=== PATIENT | male | born 1945 | race Caucasian/White ===

== ENCOUNTER 2023-06-30 18:25 | Emergency (ER) | payer OTHER ==
[~2023-06-30] VITALS: Ht 177.8 cm; Wt 77.1 kg
[2023-06-30 19:24] LABS: BASOPHILS ABSOLUTE AUTO 0.05 K/mm3 (0.00-0.23); BASOPHILS PERCENT AUTO 0 % (0-2); EOSINOPHILS ABSOLUTE AUTO 0.01 K/mm3 (0.00-0.68); EOSINOPHILS PERCENT AUTO 0 % (0-6); Hematocrit 31.2 % (37.0-53.0); Hemoglobin 10.3 g/dL (13.5-17.5); IMMATURE GRAN ABSOLUTE AUTO 0.06 K/mm3 (0.00-0.10); IMMATURE GRAN PERCENT AUTO 0 % (0-1); LYMPHOCYTES ABSOLUTE AUTO 0.38 K/mm3 (0.84-5.20); LYMPHOCYTES PERCENT AUTO 3 % (21-46); MONOCYTES ABSOLUTE AUTO 0.63 K/mm3 (0.16-1.47); MONOCYTES PERCENT AUTO 4 % (4-13); Mean Corpuscular HGB 30.7 pg (26.0-34.0); Mean Corpuscular Volume 93 fL (80-100); Mean Platelet Volume 8.7 fL (9.1-12.4); NEUTROPHILS ABSOLUTE AUTO 14.26 K/mm3 (1.96-9.15); NEUTROPHILS PERCENT AUTO 93 % (41-73); Platelet Count 371 K/mm3 (150-400); RDW Coefficient Variation 14.6 % (11.7-14.2); RDW Standard Deviation 50.1 fL (35.1-46.3); Red Blood Cell Count 3.36 M/mm3 (4.30-5.90); White Blood Cell Count 15.39 K/mm3 (4.00-11.30)
[2023-06-30 19:41] LABS: Albumin, Blood 2.8 g/dL (3.4-5.0); Albumin/Globulin Ratio 0.5 (0.8-1.8); Bilirubin, Total 0.3 mg/dL (0.1-1.0); Bun/Creatinine Ratio 17.5 (12.0-20.0); Calcium, Blood 8.6 mg/dL (8.5-10.1); Creatinine, Blood 1.26 mg/dL (0.60-1.20); Globulin, Blood 5.3 g/dL (2.2-4.0); Potassium, Blood 4.8 mmol/L (3.5-5.5); Total Protein, Blood 8.1 g/dL (6.4-8.2)
[2023-06-30] MEDS ORDERED: AZIT250 PO (21:04)
[2023-07-01] MEDS ORDERED: AZIT250 PO ×3 (06:59→08:32)
[2023-07-01 20:30] VITALS: BP 136/74
== END 2023-06-30 21:00 ==
LOC: ER 18:25
PROVIDERS: Emergency Medicine
DX: R56.9 Unspecified convulsions (principal); J18.9 Pneumonia, unspecified organism; J44.9 Chronic obstructive pulmonary disease, unspecified; I10 Essential (primary) hypertension
CPT/HCPCS: 70450; 71045; 80053; 85025; 93005; 93010; J1953

== ENCOUNTER 2023-12-31 06:53 | Inpatient (IN) | payer OTHER ==
[~2023-12-31] VITALS: Ht 185.4 cm; Wt 75.9 kg
[~2023-12-31 06:53] MED LIST: ALBU2.5V5; ALBU90OI INH; AMLO10 PO; AMOCLA875 PO; AZIT250 PO; CEPH500 PO; Crestor20 MG PO; DEXA1 PO; FAMO40 PO; FERSU300 PO; FLUT1DIS5 INH; Hytrin2 MG PO; IPRATROPIUM BRO15 ML; LOPE2C PO; MAGNESIUM OXID500 MG PO; METO50ER PO; OMEP20ER PO; PRED5EL MT; PROBIOTIC1 EA13 PO; Percocet 5-3251 EACH PO; Prinivil10 MG PO; TIOT18 INH
[2023-12-31] MEDS ORDERED: levETIRAcetam 1,000 MG in NS 100 ML IV ONE (07:05)
[2023-12-31] MEDS ORDERED: Albuterol 2.5 MG/3 ML VIAL INH SCH (07:10)
[2023-12-31 07:15] LABS: BASOPHILS ABSOLUTE AUTO 0.07 K/mm3 (0.00-0.23); BASOPHILS PERCENT AUTO 1 % (0-2); EOSINOPHILS ABSOLUTE AUTO 0.26 K/mm3 (0.00-0.68); EOSINOPHILS PERCENT AUTO 3 % (0-6); Hematocrit 37.9 % (37.0-53.0); Hemoglobin 11.7 g/dL (13.5-17.5); IMMATURE GRAN ABSOLUTE AUTO 0.03 K/mm3 (0.00-0.10); IMMATURE GRAN PERCENT AUTO 0 % (0-1); LYMPHOCYTES ABSOLUTE AUTO 1.72 K/mm3 (0.84-5.20); LYMPHOCYTES PERCENT AUTO 18 % (21-46); MONOCYTES PERCENT AUTO 11 % (4-13); Mean Corpuscular HGB 31.1 pg (26.0-34.0); Mean Corpuscular HGB Conc 30.9 g/dL (31.5-36.5); Mean Corpuscular Volume 101 fL (80-100); Mean Platelet Volume 9.3 fL (9.1-12.4); NEUTROPHILS ABSOLUTE AUTO 6.49 K/mm3 (1.96-9.15); NEUTROPHILS PERCENT AUTO 67 % (41-73); Platelet Count 373 K/mm3 (150-400); RDW Coefficient Variation 16.4 % (11.7-14.2); RDW Standard Deviation 61.1 fL (35.1-46.3); Red Blood Cell Count 3.76 M/mm3 (4.30-5.90); White Blood Cell Count 9.67 K/mm3 (4.00-11.30)
[2023-12-31 07:20] LABS: PCO2 Venous 57.1 mmHg (38-42)
[2023-12-31 07:21] LABS: Base Excess Venous -12.1 mmol/L; Bicarbonate Venous 14.9 mmol/L (24.0-30.0)
[2023-12-31 07:36] LABS: Alanine Aminotransfer (ALT/SGP 15 U/L (12-78); Albumin, Blood 3.1 g/dL (3.4-5.0); Albumin/Globulin Ratio 0.6 (0.8-1.8); Alk Phos 70 U/L (50-136); Anion Gap 19 mmol/L (3-11); Aspartate Aminotrans (AST/SGOT 30 U/L (12-37); Bilirubin, Total 0.3 mg/dL (0.1-1.0); Blood Urea Nitrogen 24 mg/dL (8-24); Bun/Creatinine Ratio 25.1 (12.0-20.0); CO2, Blood 18 mmol/L (21-32); Calcium, Blood 9.9 mg/dL (8.5-10.1); Chloride, Blood 107 mmol/L (98-108); Creatinine, Blood 0.96 mg/dL (0.60-1.20); Globulin, Blood 4.8 g/dL (2.2-4.0); Glomerular Filtration Rate 82 (60-); Glucose, Blood 146 mg/dL (70-99); Potassium, Blood 4.8 mmol/L (3.5-5.5); Sodium, Blood 139 mmol/L (136-145); Total Protein, Blood 7.9 g/dL (6.4-8.2)
[2023-12-31] MEDS ORDERED: Dexamethasone Sod Phos 10 MG/ML 1ML VIAL PO ONE (10:10)
[2023-12-31] MEDS ORDERED: Dexamethasone Sod Phos 10 MG/ML 1ML VIAL IV ONE (10:25)
[2023-12-31] MEDS ORDERED: HYDROcodone 10-APAP 325 TAB PO PRN (11:25)
[2023-12-31] MEDS ORDERED: Acetaminophen 325 MG TABLET PO PRN (11:25)
[2023-12-31] MEDS ORDERED: Albuterol HFA200 ACT/6.7 GM INH INH PRN (11:35)
[2023-12-31] MEDS ORDERED: Dexamethasone Sodium Phosphate 4 MG/ML 1ML Vial IV SCH (12:00)
[2023-12-31 13:52] VITALS: BP 151/87
[2023-12-31] MEDS ORDERED: AMLO5 PO (14:11)
[2023-12-31] MEDS ORDERED: Ferrous Sulfate 325 MG Tab PO SCH (17:00)
--- NOTE | 2023-12-31 17:24 | NUR ---
ADMISSION AND SHIFT SUMMARY PATIENT ADMITTED TO MEDICAL FLOOR AFTER FALLING OUT OF BED AND HAVING 2 SEIZURES BEFORE ARRIVING TO THE HOSPITAL. PATIENT HAS SKIN TEARS ON FACE AND HANDS ALONG WITH BRUISING FROM FALL. PATIENT AROUSES, ABLE TO ANSWER SIMPLE QUESTIONS. 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 PATIENT STARTED ON KEPPRA IN ED ALONG WITH STEROIDS. ARRIVED AFTER PATIENT. AGITATED AND VERBALIZING FRUSTRATION ABOUT PREVIOUS DISCHARGE. CASE MANAGEMENT NOTIFIED AND PATIENT ADVOCATE CONTACTED. PATIENT ADVOCATE MADE CONTACT WITH . NO FURTHER SEIZURE ACTIVITY WITNESSED THIS SHIFT.
[2023-12-31] MEDS ORDERED: LORazepam 2 MG/ML 1ML Injection IV PRN (17:35)
[2023-12-31 19:46] VITALS: BP 133/75
[2023-12-31] MEDS ORDERED: Doxazosin Mesylate 2 MG Tab PO SCH (21:00)
[2023-12-31] MEDS ORDERED: levETIRAcetam 1,000 MG in NS 100 ML IV SCH (21:00)
[2023-12-31] MEDS ORDERED: Famotidine 20 MG Tab PO SCH (21:00)
[2023-12-31] MEDS ORDERED: NS 250 ML IV PRN (21:15)
--- NOTE | 2024-01-01 04:59 | NUR ---
SHIFT SUMMARY 78 YR M ADMITTED ON 12/31/23. DNR. NO ACUTE CHANGES THIS SHIFT. PT HAS SLEPT OFF AND ON FOR MOST OF THIS SHIFT BUT APPEARS TO BE A&O WHEN AWAKE. HE IS ABLE TO ANSWER QUESTIONS APPROPRIATELY AND ENGAGE IN SMALL TALK. HE STATES THAT HE FEELS FINE AND IS COMFORTABLE. NO SEIZURE ACTIVITY NOTED THIS SHIFT.
[2024-01-01 05:37] VITALS: BP 123/88
[2024-01-01 05:53] LABS: BASOPHILS PERCENT AUTO 0 % (0-2); EOSINOPHILS PERCENT AUTO 0 % (0-6); Hematocrit 32.1 % (37.0-53.0); Hemoglobin 10.3 g/dL (13.5-17.5); IMMATURE GRAN ABSOLUTE AUTO 0.03 K/mm3 (0.00-0.10); IMMATURE GRAN PERCENT AUTO 1 % (0-1); LYMPHOCYTES PERCENT AUTO 6 % (21-46); MONOCYTES ABSOLUTE AUTO 0.09 K/mm3 (0.16-1.47); MONOCYTES PERCENT AUTO 1 % (4-13); Mean Corpuscular HGB 30.4 pg (26.0-34.0); Mean Corpuscular HGB Conc 32.1 g/dL (31.5-36.5); Mean Platelet Volume 9.2 fL (9.1-12.4); NEUTROPHILS ABSOLUTE AUTO 6.02 K/mm3 (1.96-9.15); NEUTROPHILS PERCENT AUTO 92 % (41-73); Platelet Count 293 K/mm3 (150-400); RDW Coefficient Variation 16.1 % (11.7-14.2); RDW Standard Deviation 56.1 fL (35.1-46.3); Red Blood Cell Count 3.39 M/mm3 (4.30-5.90); White Blood Cell Count 6.54 K/mm3 (4.00-11.30)
[2024-01-01 05:55] LABS: Mean Corpuscular Volume 95 fL (80-100)
[2024-01-01 06:20] LABS: BASOPHILS PERCENT MAN 0 % (0-2); EOSINOPHILS PERCENT MAN 0 % (0-6); LYMPHOCYTES ABSOLUTE MAN 0.26 K/mm3 (0.84-5.20); LYMPHOCYTES PERCENT MAN 4 % (21-46); MONOCYTES ABSOLUTE MAN 0.13 K/mm3 (0.16-1.47); MONOCYTES PERCENT MAN 2 % (4-13); NEUTROPHILS ABSOLUTE MAN 6.14 K/mm3 (1.96-9.15); SEG NEUTROPHILS PERCENT MAN 94 % (41-73); TOTAL CELLS COUNTED 100
[2024-01-01 06:25] LABS: Bun/Creatinine Ratio 27.9 (12.0-20.0); Calcium, Blood 9.6 mg/dL (8.5-10.1); Creatinine, Blood 0.79 mg/dL (0.60-1.20); Potassium, Blood 4.2 mmol/L (3.5-5.5)
[2024-01-01 07:17] VITALS: BP 122/84
[2024-01-01] MEDS ORDERED: Rosuvastatin Calcium 10 MG Tab PO SCH (09:00)
[2024-01-01] MEDS ORDERED: Metoprolol Succinate 50 MG TABCR PO SCH (09:00)
[2024-01-01] MEDS ORDERED: Lisinopril 10 MG Tab PO SCH (09:00)
[2024-01-01 15:42] VITALS: BP 113/74
--- NOTE | 2024-01-01 17:58 | NUR ---
SHIFT SUMMARY PATIENT ALERT AND INTERACTIVE. PATIENT UP TO CHAIR TODAY AND USING BEDSIDE COMMODE. PATIENT DENIES ANY HEADACHE. STATES THAT HE CANT REMEMBER ANYTHING FROM YESTERDAY. PATIENT DOES NOT REMEMBER FALLING BUT IS AWARE THAT HE HAD A SEIZURE. NO SEIZURE ACTIVITY WITNESSED THIS SHIFT. CONTINUE TO GIVE STEROIDS AND KEPPRA. PATIENT ABLE TO FEED SELF AND TAKE PO MEDICATIONS WITHOUT DIFFICULTY. IN TO SEE PATIENT AT END OF SHIFT. DR. LEVY SPOKE WITH AT LENGTH ABOUT PLAN. PATIENT TO BE DISCHARGED IN THE AM. PATIENT TO CONTINUE SEIZURE MEDICATIONS AND STEROIDS AN OUTPATIENT. MEDICATIONS FAXED TO [facility] PER 'S REQUEST. VERBALIZING FRUSTRATION IN THE ROOM ABOUT HAVING TO PAY FOR MEDICATIONS SINCE [facility] CLOSED.
[2024-01-01] MEDS ORDERED: dexAMETHasone 4 MG TAB PO SCH (18:00)
[2024-01-01 20:04] VITALS: BP 133/82
[2024-01-01] MEDS ORDERED: LevETIRAcetam 500 MG Tab PO SCH (21:00)
[2024-01-02 03:35] VITALS: BP 129/77
--- NOTE | 2024-01-02 04:13 | NUR ---
SHIFT SUMMARY A&Ox4. Calm and pleasant RA. Tele, denies CP/pressure. Utilizes urinal. Uninterrupted rest >[address] on L cheek d/t skin tear present from a fall resulting in this admit. Safety precautions monitored, pt call light appropriate.
[2024-01-02 07:40] VITALS: BP 147/80
[2024-01-02] MEDS ORDERED: ACET325 PO (10:37)
[2024-01-02] MEDS ORDERED: DECADRON4 M1 PT (10:39)
[2024-01-02] MEDS ORDERED: LEVE500 PO (10:41)
[2024-01-02] MEDS ORDERED: FAMO20 PO (10:41)
[2024-01-02] MEDS ORDERED: DOXA2 PO (10:41)
[2024-01-02] MEDS ORDERED: METO50ER PO (10:42)
[2024-01-02] MEDS ORDERED: Prinivil10 MG PO (10:42)
[2024-01-02] MEDS ORDERED: ROSU10TA PO (10:43)
--- NOTE | 2024-01-02 11:15 | NUR ---
pt has been discharged to home, family member here, states she needs a wheelchair, went over discharge with pt. he verbalized understanding, iv removed intact, new meds faxed to [facility], left via wheelchair with his belongings and electric cell tender in attendence.
== END 2024-01-02 11:08 | disposition home health service (06) | DRG 54 ==
LOC: ER 06:53 → MEDS 06:54
PROVIDERS: Emergency Medicine; ADMIT Internal Medicine
DX: C79.31 Secondary malignant neoplasm of brain (principal); G93.6 Cerebral edema; E87.20 Acidosis, unspecified; C34.90 Malignant neoplasm of unspecified part of unspecified bronchus or lung; I10 Essential (primary) hypertension; J44.9 Chronic obstructive pulmonary disease, unspecified; D64.9 Anemia, unspecified; S00.83XA Contusion of other part of head, initial encounter; Z66 Do not resuscitate; W06.XXXA Fall from bed, initial encounter; Z96.649 Presence of unspecified artificial hip joint; Z96.659 Presence of unspecified artificial knee joint
CPT/HCPCS: 36415; 70450; 70496; 70498; 71045; 72125; 80048; 80053; 82803; 85025; 93005; 93010; 94644; 94664; 94760; 96365-59; 96375-59; 97162; 99285-25; A9270; G0378; J1100; J1953; J7050; Q9967

== ENCOUNTER 2024-02-05 07:58 | Inpatient (IN) | payer OTHER ==
[~2024-02-05] VITALS: Ht 177.8 cm; Wt 78.6 kg
[~2024-02-05 07:58] MED LIST changes: +ACET325 PO; +AMLO5 PO; +DECADRON4 M1 PO; +DOXA2 PO; +FAMO20 PO; +LEVE500 PO; +ROSU10TA PO
[2024-02-05] MEDS ORDERED: NS 500 ML IV SCH (08:15)
[2024-02-05 08:21] LABS: Hematocrit 42.7 % (37.0-53.0); Hemoglobin 14.3 g/dL (13.5-17.5); Mean Corpuscular HGB 30.6 pg (26.0-34.0); Mean Corpuscular HGB Conc 33.5 g/dL (31.5-36.5); Mean Corpuscular Volume 91 fL (80-100); NRBC ABSOLUTE 0.02 K/mm3 (0.00-0.02); NRBC Auto 0.2 /100 WBC (0.0-0.2); Platelet Count 149 K/mm3 (150-400); RDW Coefficient Variation 17.7 % (11.7-14.2); RDW Standard Deviation 59.7 fL (35.1-46.3); Red Blood Cell Count 4.68 M/mm3 (4.30-5.90); White Blood Cell Count 11.61 K/mm3 (4.00-11.30)
[2024-02-05 08:40] LABS: Albumin, Blood 1.7 g/dL (3.4-5.0); Albumin/Globulin Ratio 0.3 (0.8-1.8); Bilirubin, Total 0.3 mg/dL (0.1-1.0); Bun/Creatinine Ratio 53.1 (12.0-20.0); Calcium, Blood 10.1 mg/dL (8.5-10.1); Creatinine, Blood 0.68 mg/dL (0.60-1.20); Globulin, Blood 5.6 g/dL (2.2-4.0); Potassium, Blood 4.7 mmol/L (3.5-5.5); Total Protein, Blood 7.3 g/dL (6.4-8.2)
[2024-02-05 08:42] LABS: BAND PERCENT MAN 10 % (0-8); BASOPHILS PERCENT MAN 0 % (0-2); EOSINOPHILS PERCENT MAN 0 % (0-6); LYMPHOCYTES ABSOLUTE MAN 0.11 K/mm3 (0.84-5.20); LYMPHOCYTES PERCENT MAN 1 % (21-46); METAMYELOCYTE ABSOLUTE MAN 0.11 K/mm3 (0.00-0.00); METAMYELOCYTE PERCENT MAN 1 % (0-0); MONOCYTES ABSOLUTE MAN 0.34 K/mm3 (0.16-1.47); MONOCYTES PERCENT MAN 3 % (4-13); NEUTROPHILS ABSOLUTE MAN 11.02 K/mm3 (1.96-9.15); SEG NEUTROPHILS PERCENT MAN 85 % (41-73); TOTAL CELLS COUNTED 100
[2024-02-05] MEDS ORDERED: CefTRIAXone Sodium 1,000 MG in NS 100 ML IV ONE (12:40)
[2024-02-05] MEDS ORDERED: Azithromycin 500 MG in NS 250 ML IV ONE (12:40)
[2024-02-05] MEDS ORDERED: NS 1,000 ML IV SCH ×2 (14:20→14:30)
[2024-02-05] MEDS ORDERED: Acetaminophen 325 MG TABLET PO PRN (14:30)
[2024-02-05] MEDS ORDERED: Metoprolol Succinate 50 MG TABCR PO SCH (15:00)
[2024-02-05] MEDS ORDERED: Cefepime HCl 2,000 MG in NS 100 ML IV SCH (16:00)
[2024-02-05 16:34] VITALS: BP 167/107
[2024-02-05 16:35] LABS: Source, Urine Clean Catch
[2024-02-05] MEDS ORDERED: Labetalol HCL 5 MG/ML 4ML Injection (Single Dose) IV PRN (16:45)
[2024-02-05] MEDS ORDERED: Albuterol 2.5 MG/3 ML VIAL INH SCH (16:50)
[2024-02-05] MEDS ORDERED: Albuterol 2.5 MG/3 ML VIAL INH PRN (16:50)
[2024-02-05 17:00] LABS: Bilirubin, Urine Neg (Neg); Blood, Urine 1+ (Neg); Color, Urine Yellow (P-Yellow); Glucose Qualitative, Urine Neg (Neg); Ketones, Urine Neg (Neg); Leukocyte Esterase, Urine Neg (Neg); Nitrite, Urine Neg (Neg); Protein, Urine 4+ (Neg); Specific Gravity, Urine 1.015 (1.003-1.022); Urobilinogen, Urine NORM (Normal)
[2024-02-05 17:02] VITALS: BP 169/101
[2024-02-05 17:06] VITALS: BP 136/91
[2024-02-05 17:10] LABS: Base Excess Venous 0.1 mmol/L; Bicarbonate Venous 23.9 mmol/L (24.0-30.0); PCO2 Venous 45.6 mmHg (38-42); pH Blood Venous 7.36 (7.34-7.37)
[2024-02-05 17:11] LABS: Amorphous Mod (0-Heavy); Appearance, Urine Hazy (Clear); Bacteria Many /hpf; Mucus Light (0-Heavy); Squamous Epithelial Cells Rare /hpf (Few); Transitional Epithelial Cells Rare /hpf (0-Rare)
[2024-02-05 17:12] LABS: Red Blood Cells, Urine 0-2 /hpf (0-2)
[2024-02-05 17:15] VITALS: BP 143/92
[2024-02-05] MEDS ORDERED: dexAMETHasone 4 MG TAB PO SCH (18:00)
--- NOTE | 2024-02-05 18:09 | NUR ---
PT IS A NEW ADMIT THIS EVENING. HE IS A&OX2-3, BED ALARM ON, THREE SIDE RAILS UP, AND CALL LIGHT IN REACH. THE PT IS HAVING DYSPNEA, TACHYPEANIA, AND IS CURRENTLY ON 3LNC. BIPAP/CPAP PROTOCOL STARTED, RT AWARE. VBG WAS TAKEN SEE LABS FOR REVIEW. BP WAS ELEVATED, 10MG LABETALOL WAS GIVEN FOR SBP >165. BP IMRPOVED. ON TELE HE HAS BEEN SR/ST 90'S-140'S W/ PVC'S. SEE NOTES FOR UPDATES.
[2024-02-05 18:58] VITALS: BP 110/72
[2024-02-05] MEDS ORDERED: LevETIRAcetam 500 MG Tab PO SCH (21:00)
[2024-02-05 21:07] LABS: Campylobacter Sp Not Detected (NOT DETECT); E. Coli O157 Not Detected (NOT DETECT); Enteroaggregative E. coli-EAEC Not Detected (NOT DETECT); Enteropathogenic E. coli-EPEC Not Detected (NOT DETECT); Enterotoxigenic E. coli-ETEC Not Detected (NOT DETECT); Plesiomonas Shigelloides Not Detected (NOT DETECT); Salmonella Sp Not Detected (NOT DETECT); Shiga Toxin-prod E. coli-STEC Not Detected (NOT DETECT); Vibrio Cholerae Not Detected (NOT DETECT); Vibrio Sp Not Detected (NOT DETECT); Yersinia Enterocolitica Not Detected (NOT DETECT)
[2024-02-05 21:08] LABS: Adenovirus F 40/41 Not Detected (NOT DETECT); Astrovirus Not Detected (NOT DETECT); Cryptosporidium Not Detected (NOT DETECT); Cyclospora Cayetanensis Not Detected (NOT DETECT); Entamoeba Histolytica Not Detected (NOT DETECT); Giardia Lamblia Not Detected (NOT DETECT); Norovirus GI/GII Not Detected (NOT DETECT); Rotavirus A Not Detected (NOT DETECT); Sapovirus Not Detected (NOT DETECT); Shigella/Enteroin E. coli-EIEC Not Detected (NOT DETECT)
[2024-02-06] VITALS (7 sets, daily range): BP systolic 132–172; BP diastolic 83–100
[2024-02-06] MEDS ORDERED: Vancomycin HCL 1,250 MG in NS 250 ML IV SCH (04:00)
[2024-02-06 05:10] LABS: Hematocrit 35.8 % (37.0-53.0); Hemoglobin 11.8 g/dL (13.5-17.5); Mean Corpuscular HGB 30.4 pg (26.0-34.0); Mean Corpuscular Volume 92 fL (80-100); Mean Platelet Volume 9.8 fL (9.1-12.4); Platelet Count 130 K/mm3 (150-400); RDW Standard Deviation 61.3 fL (35.1-46.3); Red Blood Cell Count 3.88 M/mm3 (4.30-5.90); White Blood Cell Count 8.49 K/mm3 (4.00-11.30)
[2024-02-06 05:33] LABS: Albumin, Blood 1.3 g/dL (3.4-5.0); Albumin/Globulin Ratio 0.3 (0.8-1.8); Bilirubin, Total 0.3 mg/dL (0.1-1.0); Bun/Creatinine Ratio 44.4 (12.0-20.0); Calcium, Blood 9.2 mg/dL (8.5-10.1); Creatinine, Blood 0.81 mg/dL (0.60-1.20); Globulin, Blood 4.9 g/dL (2.2-4.0); Potassium, Blood 4.7 mmol/L (3.5-5.5); Total Protein, Blood 6.2 g/dL (6.4-8.2)
[2024-02-06 05:35] LABS: BAND PERCENT MAN 20 % (0-8); BASOPHILS PERCENT MAN 0 % (0-2); EOSINOPHILS PERCENT MAN 0 % (0-6); MONOCYTES ABSOLUTE MAN 0.33 K/mm3 (0.16-1.47); MONOCYTES PERCENT MAN 4 % (4-13); NEUTROPHILS ABSOLUTE MAN 8.15 K/mm3 (1.96-9.15); SEG NEUTROPHILS PERCENT MAN 76 % (41-73); TOTAL CELLS COUNTED 100
--- NOTE | 2024-02-06 06:20 | NUR ---
SHIFT SUMMARY PT A&O X 1-2; ORIENTED TO SELF/PERSON AND PLACE. PT PLEASANT AND COOPERATIVE WITH CARE, FORGETFULNESS AND CONFUSION NOTED AT TIMES. PT REORIENTED. VSS; ALTHOUGH SBP LABILE 110 -169 (SEE VITALS), SR WITH RATE IN 70'S, AFEBRILE, SPO2 93 - 98% ON 3 LPM NC. PT WITH LOOSE, MOIST NONPRODUCTIVE COUGH. LS COARSE, WHEEZES T/O. PT DENIES CP/PRESSURE, N/V, SOB, DIZZINESS, OR GENERAL PAIN. THIS RN DOES NOT DYSPNEA WITH EXERTION AND MILD AT REST. NO ACUTE EVENTS OVERNIGHT. PT RESTED WELL. ATTENDS CHECKED AND CHANGED Q2 OR PRN. PT REPOSITIONED Q2 OR PRN. CONDOM CATHETER IN PLACE AND DRAINING TO GRAVITY WITH 400 MLS UOP; PT WITH 1-2 INCONTINENT, UNMEASURED VOIDS WELL. NO BM THIS SHIFT. CALL LIGHT IN REACH, WILL UPDATE ONCOMING RN.
[2024-02-06] MEDS ORDERED: Enoxaparin 40 MG/0.4 ML SYR SC SCH (09:00)
[2024-02-06] MEDS ORDERED: AmLODIPine Besylate 5 MG Tab PO SCH (09:00)
[2024-02-06 14:14] LABS: Acinetobacter baumannii DNA Not Detected copy/mL (NOT DETECT); Enterobacter cloacae DNA Detected Bin 10^4 copy/mL (NOT DETECT); Escherichia coli DNA Not Detected copy/mL (NOT DETECT); Haemophilus influenzae DNA Not Detected copy/mL (NOT DETECT); Klebsiella aerogenes DNA Not Detected copy/mL (NOT DETECT); Klebsiella oxytoca DNA Not Detected copy/mL (NOT DETECT); Klebsiella pneumoniae DNA Not Detected copy/mL (NOT DETECT); Moraxella catarrhalis DNA Detected Bin >=10^7 copy/mL (NOT DETECT); Proteus sp DNA Not Detected copy/mL (NOT DETECT); Pseudomonas aeruginosa DNA Detected Bin 10^4 copy/mL (NOT DETECT); Serratia marcescens DNA Not Detected copy/mL (NOT DETECT); Staphylococcus aureus DNA Not Detected copy/mL (NOT DETECT); Streptococcus agalactiae DNA Not Detected copy/mL (NOT DETECT); Streptococcus pneumoniae DNA Not Detected copy/mL (NOT DETECT); Streptococcus pyogenes DNA Not Detected copy/mL (NOT DETECT)
[2024-02-06 14:15] LABS: Adenovirus DNA Not Detected (NOT DETECT); CTX-M Resistance Gene Not Detected; Chlamydia pneumonia Not Detected (NOT DETECT); Human Coronavirus RNA Not Detected (NOT DETECT); Human Metapneumovirus RNA Not Detected (NOT DETECT); IMP Resistance Gene Not Detected; Influenza virus A RNA Not Detected (NOT DETECT); Influenza virus B RNA Not Detected (NOT DETECT); KPC Resistance Gene Not Detected; Legionella pneumophila Not Detected (NOT DETECT); Mycoplasma pneumoniae Not Detected (NOT DETECT); NDM Resistance Gene Not Detected; OXA-48-like Resistance Gene Not Detected; Parainfluenza virus RNA Not Detected (NOT DETECT); Respiratory syncytial Vir RNA Not Detected (NOT DETECT); Rhinovirus+Enterovirus RNA Not Detected (NOT DETECT); VIM Resistance Gene Not Detected
[2024-02-06] MEDS ORDERED: MethylPREDNISolone Sod Succ 125 MG Vial IV SCH (16:00)
--- NOTE | 2024-02-06 16:23 | NUR ---
CASE CONFERENCE: SPOKE WITH PT'S ANTHONY BY PHONE. SHE STATES THE PATIENT'S CONDITION HAS BECOME UNMANAGABLE. SHE STATES SHE NOTICES CHANGES IN HIS BEHAVIOR, AND HIS ABILITY TO ASSIST WITH HIS OWN CARE. SHE CHOSE NOT TO COME VISIT TODAY DUE TO THEIR INTERACTIONS BECOMING INCREASINGLY MORE VOLATILE. SHE STATES DR. PIERCE HAD RECOMMENDED HE COME TO THE HOSPITAL DUE TO HIS CHANGES IN MENTATION AND INCREASED WEAKNESS. THE PATIENT WAS THEN ADMITTED TO THE HOSPITAL WITH PNEUMONIA. ANTHONY STATES SHE IS UNABLE TO CARE FOR THE PATIENT AT HOME ANY LONGER DUE TO HIS INCREASED WEAKNESS AND CARE NEEDS. SHE IS REQUESTING THE PATIENT BE SCREENED FOR THE [facility] AT [place]. ANTHONY VERBALIZES CONCERN THAT THE PATIENT WILL "GIVE UP" WITHOUT CONSISTENT ENCOURAGEMENT. 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 THE PATIENT HIMSELF STATED TO THIS RN, HE WANTS TO UNDERSTAND HIS PROGNOSIS BEFORE DECIDING WHETHER TO FOCUS ON HIS COMFORT VS ATTEMPTING TO RESTART TREATMENT. DISCUSSED WITH DR. LYONS WHO AGREES FOR NOW, WE NEED TO TREAT THE PNEUMONIA BEFORE ASKING THE PATIENT TO MAKE ANY BIG DECISIONS. PALLIATIVE CARE WILL CONTINUE TO FOLLOW.
--- NOTE | 2024-02-06 16:37 | NUR ---
SHIFT SUMMARY PT IS A&OX2-3; THE DAY PROGRESSED HE STARTED YELLING OUT MORE BUT WAS STILL ORIENTED TO PERSON, SELF, AND PLACE. SOME THINGS HE WOULD YELL OUT WAS "RACHEL" AND "ANTHONY". ALSO, THE PT SLEEP TALKS. HE REMAINS BEDREST, Q2 TURN, AND HE REFUSED WORKING WITH PHYSICAL THERAPY. THE PT SAID HE DOES NOT WANT TO DO THIS ANYMORE. HE HAS A CONDOM CATH IN PLACE THAT IS DRAINING TO GRAVITY, BUT IT HAS COME OFF A FEW TIMES AND HE HAS A FEW UNMEASURED VOIDS. HE REMAINS ON 3LNC AND STILL APEARS TO BE WORKING HARD TO BREATH. HE IS RECIVING BREATHING TREATMENTS PER RT WHICH HELP WITH SOB. ON TELE HE HAS BEEN SR/ST. PT REMAINS HYPERTENSIVE, MEDICATIONS PER EMAR. PALLIATIVE TO ASSESS THE PT. SEE NOTES FOR ANY UPDATES.
[2024-02-06] MEDS ORDERED: LevETIRAcetam 500 MG Tab PO SCH (21:00)
[2024-02-07 04:00] VITALS: BP 152/95
[2024-02-07 04:13] LABS: Hematocrit 32.2 % (37.0-53.0); Hemoglobin 10.8 g/dL (13.5-17.5); Mean Corpuscular HGB 30.4 pg (26.0-34.0); Mean Corpuscular HGB Conc 33.5 g/dL (31.5-36.5); Mean Corpuscular Volume 91 fL (80-100); Mean Platelet Volume 10.9 fL (9.1-12.4); NRBC ABSOLUTE 0.02 K/mm3 (0.00-0.02); NRBC Auto 0.2 /100 WBC (0.0-0.2); Platelet Count 118 K/mm3 (150-400); RDW Coefficient Variation 17.7 % (11.7-14.2); RDW Standard Deviation 58.9 fL (35.1-46.3); Red Blood Cell Count 3.55 M/mm3 (4.30-5.90); White Blood Cell Count 9.11 K/mm3 (4.00-11.30)
[2024-02-07 04:35] LABS: BAND PERCENT MAN 11 % (0-8); BASOPHILS PERCENT MAN 0 % (0-2); EOSINOPHILS PERCENT MAN 0 % (0-6); LYMPHOCYTES ABSOLUTE MAN 0.09 K/mm3 (0.84-5.20); LYMPHOCYTES PERCENT MAN 1 % (21-46); MONOCYTES ABSOLUTE MAN 0.09 K/mm3 (0.16-1.47); MONOCYTES PERCENT MAN 1 % (4-13); NEUTROPHILS ABSOLUTE MAN 8.92 K/mm3 (1.96-9.15); SEG NEUTROPHILS PERCENT MAN 87 % (41-73); TOTAL CELLS COUNTED 100
[2024-02-07 04:49] LABS: Albumin, Blood 1.2 g/dL (3.4-5.0); Albumin/Globulin Ratio 0.2 (0.8-1.8); Bilirubin, Total 0.2 mg/dL (0.1-1.0); Bun/Creatinine Ratio 59.6 (12.0-20.0); Calcium, Blood 9.5 mg/dL (8.5-10.1); Creatinine, Blood 0.77 mg/dL (0.60-1.20); Potassium, Blood 4.4 mmol/L (3.5-5.5); Total Protein, Blood 6.2 g/dL (6.4-8.2)
--- NOTE | 2024-02-07 06:03 | NUR ---
SHIFT SUMMARY PT ALERT, ORIENTED X 2-3; PT ABLE TO ANSWER ORIENTATION QUESTIONS ACCURATELY ALTHOUGH PT'S CONFUSION INCREASING. PT CALLING/YELLING OUT THROUGH THE NIGHT, BUT UNSURE WHY OR UNABLE TO STATE WHY. PT MAKING STRANGE COMMENTS ABOUT "IV PUMP FALLING APART AND NEEDING TO FIX IT", CALLING OUT RANDOM NAMES, AND SOME COMMENTS NOT MAKING SENSE. PERINDER. VSS; SBP 147 - 152, SR WITH RATE IN 70 - 80'S, TEMP MAX 99.2, SPO2 95-96% ON 2 LPM NC. PT DENIES SOB, CP/PRESSURE, DIZZINESS, N/V. THIS RN DOES NOTE SOB AT REST AND WITH EXERTION, SPO2 MAINTAINS. PT ALSO PURSED LIP BREATHING AND ACC. MUSCLES USE AT TIMES, BUT DENIES FEELING SOB OR DIFFICULTY BREATHING. NO ACUTE EVENTS OVERNIGHT. PT HAD BM X1; MEDIUM, SOFT BUT FORMED AND BROWN IN COLOR. CONDOM CATHETER IN PLACE WITH ATTENDS; 300 MLS UOP. PT DECLINING HS OR ORAL CARE T/O SHIFT EVEN THOUGH ASKED AND PROMPTED SEVERAL TIMES. REPOSITIONED AND ATTENDS CHECKED Q2 OR PRN. CALL LIGHT IN REACH AND BED ALARM ON. WILL UPDATE ONCOMING RN
[2024-02-07 08:18] VITALS: BP 154/79
[2024-02-07 15:34] VITALS: BP 149/89
[2024-02-07] MEDS ORDERED: NS 250 ML IV PRN (16:05)
[2024-02-07] MEDS ORDERED: LORazepam 1 MG Tab PO PRN (17:45)
--- NOTE | 2024-02-07 19:33 | NUR ---
ASSUMED CARE OF PT AT 0700 THIS AM. PT APPEARED TO BE MORE AWAKE AND ORIENTED TODAY. DR FOX AND CHASIDY IN TO ROUND THIS AM. O2 NEEDS HAVE BEEN DECREASING AND PT IS MADE MED NO TELE STATUS. SEE DOCUMENTED VS AND ASSESSMENT. PT TRANSFERED TO 312 WITH ALL BELONGING AND THIS NURSE CONTINUING CARE. NO ACUTE CHANGES T/O THE DAY. PT WITH CALL LIGHT IN REACH, BED ALARM ON FOR SAFETY.
[2024-02-07 20:02] VITALS: BP 151/94
[2024-02-07] MEDS ORDERED: Famotidine 20 MG Tab PO SCH (21:00)
[2024-02-07] MEDS ORDERED: MethylPREDNISolone Sod Succ 125 MG Vial IV SCH (21:00)
[2024-02-08 02:34] VITALS: BP 173/114
[2024-02-08 03:20] VITALS: BP 173/111
--- NOTE | 2024-02-08 03:29 | NUR ---
TELEMETRY PLACED ON PT AND RUNNING NSR AT 88. LABETALOL ADMINISTERED FOR SBP OVER 170. ATIVAN GIVEN FOR ANXIETY PRN.
--- NOTE | 2024-02-08 04:19 | NUR ---
EKG OBTAINED FOR HTN, BLADDER SCANNED FOR RETENTION, PT VOIDED AFTER BLADDER SCAN.
--- NOTE | 2024-02-08 05:37 | NUR ---
ASSUMED CARE OF PT WHILE PRIMARY RN ON BREAK. CALL LIGHT WITHIN REACH.
--- NOTE | 2024-02-08 06:14 | NUR ---
SHIFT SUMMARY PT A&O TO SELF AND IS CONFUSED. LUNG SOUNDS ARE WET. PT EXPERIENCED HTN AND RECEIVED LABETALOL 2MG IV FOR HTN. PT ON TELEMETRY RUNNING NSR @ 87 W/ A BBB. EKG PREFORMED, BLADDER SCAN PERFORMED, PT VOIDED POST BLADDER SCAN, NO STRAIGHT CATH REQUIRED. PT RECEIVED ATIVAN PRN FOR AGITATION AND ANXIETY. REMAINING VSS, NO COMPLAINTS OF CP/PRESSURE. PT RECEIVED HS MEDICATIONS. PT SPENT MOST OF SHIFT RESTING IN BED. NO ACUTE EVENTS AT THIS TIME. PT LEFT IN A POSITION OF SAFETY WITH FALL PRECAUTIONS IN PLACE AND CALL LIGHT IN REACH.
[2024-02-08 07:43] VITALS: BP 167/112
[2024-02-08] MEDS ORDERED: AmLODIPine Besylate 5 MG Tab PO SCH (08:00)
--- NOTE | 2024-02-08 11:35 | NUR ---
CASE CONFERENCE: SPOKE TO DR. PIERCE'S [place] RILEY THIS MORNING. THEIR POSITION IS THAT THE PATIENT WOULD HAVE TO BE HEALTHY ENOUGH TO MAKE IT TO HIS RADIATION APPOINTMENTS TO CONTINUE WITH FRONTAL LOBE TUMOR RADIATION. HE OBVIOUSLY ISN'T CURRENTLY ABLE, AND WILL NOT BE ABLE TO CONTINUE IF HE ENDS UP IN REHAB OR MOTOR SETTER CARE. HIS STATES SHE IS NO LONGER ABLE TO MEET HIS INCREASING CARE NEEDS. ACCORDING TO [facility], THE PATIENT HAS COMPLETED AVAILABLE TREATMENT FOR LUNG CANCER, AND THE RADIATION IS PALLIATIVE. DISCUSSED WITH DR. LYONS WHO REQUESTS MEETING WITH PT'S ANTHONY TODAY TO FURTHER DISCUSS OPTIONS. THE PATIENT IS EXHIBITING INCREASED CONFUSION TODAY, AND IF THE CONFUSION DOESN'T CLEAR, HE WILL BE UNABLE TO PARTICIPATE IN THE CARE PLANNING MEETING.
[2024-02-08] MEDS ORDERED: HydrALAZINE HCl 20 MG / ML 1ML Vial IV PRN (12:00)
[2024-02-08] MEDS ORDERED: HydrALAZINE HCl 20 MG / ML 1ML Vial IV ONE (12:00)
[2024-02-08 12:09] VITALS: BP 171/97
[2024-02-08 12:30] VITALS: BP 141/86
[2024-02-08] MEDS ORDERED: LORazepam 2 MG/ML 1ML Injection IV PRN (14:45)
[2024-02-08] MEDS ORDERED: Morphine Sulfate 10 MG/ML 1MLSYR IV PRN (14:45)
[2024-02-08] MEDS ORDERED: Scopolamine Hydrobromide Patch TOP PRN (14:50)
[2024-02-08] MEDS ORDERED: Morphine Sulfate 20 MG/1ML 1 ML Oral Syringe SL PRN (14:50)
--- NOTE | 2024-02-08 14:57 | NUR ---
Met with Cindy at bedside this afternoon. The patient remains confused, calling out for his mom and dad. After a lengthy discussion regarding hospice, Cindy decided to change pt's status to comfort care, [facility] as his cancer remains terminal and his condition continues to deteriorate. Dr. Carpenter writing comfort care orders, CM [facility]. Cindy asks about adding herself to pt's bank account as patient currently can't due to declining condition. This RN told Cindy I would discuss with IMAGERY INTELLIGENCE and someone will reach out to her at [phone]
[2024-02-08 15:08] VITALS: BP 142/82
[2024-02-08] MEDS ORDERED: MethylPREDNISolone Sod Succ 125 MG Vial IV SCH (21:00)
--- NOTE | 2024-02-09 05:12 | NUR ---
SHIFT SUMMARY PT A&O TO SELF AND IS NOT REORIENTABLE. PT CALLED OUT FREQUENTLY DURING SHIFT. PT MEDICATED PER EMAR FOR ANXIETY AND PAIN. PT ON COMFORT CARE. NO COMPLAINTS OF CP/PRESSURE. PT SHOWS INCREASED RESPIRATIONS WHEN MOVING. NO ACUTE EVENTS AT THIS TIME. PT SPENT MOST OF SHIFT IN BED WITH EYES CLOSED. PT ON O2 FOR COMFORT AND TO MAINTAIN O2 SATS ABOVE 90%, PT CONTINUOUSLY REMOVES NASAL CANNULA AND IS NOT RECEPTIVE TO INSTRUCTION ON THE IMPORTANCE OF KEEPING O2 MASK ON. PROPER FALL PRECAUTIONS IN PLACE AND CALL LIGHT IN REACH.
--- NOTE | 2024-02-10 02:42 | NUR ---
PASTER HAT LINING SUMMARY CONTINUES ON COMFORT CARE. HOB ELEVATED, O2 PER NC AT 3L. RESPIRATIONS RREGULAR, CURRENTLY RESPS IRREGULAR, OCCASIONAL GASPS BUT NO NOTED S/S PAIN OR AIR HUNGER. ISOLATION PRECAUTIONS MAINTAINED. CALL LIGHT IN REACH, RAILS UP X AND BED IN LOW POSITION FOR SAFEATY. WILL CONTINUE TO MONITOR.
--- NOTE | 2024-02-10 13:34 | NUR ---
SHIFT SUMMARY PATIENT UNRESPONSIVE AND AGONAL BREATHING MOST OF SHIFT. PATIENT TURNED AND ATTENDS CHECKED EVERY 2 HOURS. PATIENT FOUND TO NOT BE BREATHING AT 1329. VERIFIED WITH BLANCA FROM PALLIATIVE CARE THAT PATIENT . BLANCA TO CALL AND NOTIFY HER. DR LYONS NOTIFIED. CHARGE NURSE NOTIFIED.
--- NOTE | 2024-02-10 14:19 | NUR ---
CALLED TO PT ROOM BY PRIMARY RN. THIS RN AND ELAINE RN CONFIRMED TOD 02/10/24 @ 7074. THIS RN NOTIFIED PT'S , ANTHONY BY PHONE OF PT'S PASSING. ANTHONY DECLINES WANTING TO SEE PT PRIOR TO BEING TAKEN IN TO CARE BY [facility] DIRECTORS. ANTHONY REQUESTS ANY PERSONAL BELONGINGS BE SENT TO THE HOME WITH PT. PRIMARY RN NOTIFIED OF REQUEST.
== END 2024-02-10 13:29 | DRG 871 ==
LOC: ER 07:58 → MEDS 14:29 → PCU 14:29 → MEDS 02-07 13:34
PROVIDERS: Emergency Medicine; Student in an Organized Health Care Education/Training Program; ADMIT Hospitalist
PROC: 3E03329 Introduction of Other Anti-infective into Peripheral Vein, Percutaneous Approach (ICD-10-PCS; principal; 2024-02-05)
PROC: 0W9B3ZZ Drainage of Left Pleural Cavity, Percutaneous Approach (ICD-10-PCS; 2024-02-05)
PROC: 0W993ZZ Drainage of Right Pleural Cavity, Percutaneous Approach (ICD-10-PCS; 2024-02-05)
DX: A41.52 Sepsis due to Pseudomonas (principal); J15.1 Pneumonia due to Pseudomonas; J96.01 Acute respiratory failure with hypoxia; J96.02 Acute respiratory failure with hypercapnia; J15.69 Pneumonia due to other Gram-negative bacteria; J44.0 Chronic obstructive pulmonary disease with (acute) lower respiratory infection; C34.90 Malignant neoplasm of unspecified part of unspecified bronchus or lung; C79.31 Secondary malignant neoplasm of brain; F05 Delirium due to known physiological condition; K52.1 Toxic gastroenteritis and colitis; D84.821 Immunodeficiency due to drugs; R65.20 Severe sepsis without septic shock; Z51.5 Encounter for palliative care; Z66 Do not resuscitate; I10 Essential (primary) hypertension; K21.9 Gastro-esophageal reflux disease without esophagitis; A41.59 Other Gram-negative sepsis; N40.0 Benign prostatic hyperplasia without lower urinary tract symptoms; F41.9 Anxiety disorder, unspecified; B96.89 Other specified bacterial agents as the cause of diseases classified elsewhere; T45.1X5A Adverse effect of antineoplastic and immunosuppressive drugs, initial encounter; Z96.649 Presence of unspecified artificial hip joint; Z96.659 Presence of unspecified artificial knee joint; Z79.899 Other long term (current) drug therapy; Z90.49 Acquired absence of other specified parts of digestive tract; Z79.51 Long term (current) use of inhaled steroids; Z22.1 Carrier of other intestinal infectious diseases
CPT/HCPCS: 32555; 70470; 71045; 80053; 81001; 82803; 83605; 85025; 87040; 87086; 87324; 87507; 87633; 93005; 93010; 94640; 94664; 94760; 94762; 96361-59; 96374-59; 97110; 97162; 99285-25; A9270; J0360; J0456; J0692; J0696; J1650; J2060; J2919; J3370; J7030; J7050; Q9967